=== PATIENT | male | born 1980 | race Caucasian/White ===

== ENCOUNTER 2016-07-05 15:25 | Emergency (ER) | payer MEDICAID ==
[~2016-07-05] VITALS: Ht 185.4 cm; Wt 85.5 kg
[~2016-07-05 15:25] MED LIST: FLUO40CA9 PO; METH500T97 PO; NAPR375T3 PO; RANI300C PO
[2016-07-05] MEDS ORDERED: ONDANSETRON 2MG/ML, 2ML IVPush ONE (16:00)
[2016-07-05] MEDS ORDERED: FAMOTIDINE 20 MG/2 ML IVP ONE (16:00)
[2016-07-05] MEDS ORDERED: SODIUM CHLORIDE 0.9% 1,000ML IVBOLUS ONE (16:00)
[2016-07-05] MEDS ORDERED: MAALOX/HYOSCYAMINE/LIDOCAINE 45 ML BOTTLE PO ONE (16:00)
[2016-07-05 16:07] LABS: ASPARTATE AMINO TRANSFERASE 17 U/L (15-37); BLOOD UREA NITROGEN 12 mg/dL (7-18)
[2016-07-05] MEDS ORDERED: ONDANSETRON 2MG/ML, 2ML ONE (17:21)
[2016-07-05] MEDS ORDERED: MAALOX/HYOSCYAMINE/LIDOCAINE 45 ML BOTTLE ONE (17:21)
[2016-07-05] MEDS ORDERED: FAMOTIDINE 20 MG/2 ML ONE (17:22)
[2016-07-05 20:08] VITALS: BP 132/79
== END 2016-07-05 20:18 | disposition home or self-care (01) ==
LOC: ED 18:22
DX: R11.2 Nausea with vomiting, unspecified (principal); R10.13 Epigastric pain; Z88.0 Allergy status to penicillin; Z88.8 Allergy status to other drugs, medicaments and biological substances
CPT/HCPCS: 36415; 80053; 81003; 83690; 85025; 96361; 96374; 96375; 99284; J2405; J7030; S0028